=== PATIENT | female | born 1975 | race American Indian/Alaskan Native ===

== ENCOUNTER 2019-01-19 05:07 | Inpatient (IN) | payer OTHER | END 2019-01-23 09:54 | disposition home or self-care (01) | LOC: JASUSAT 05:07 → J6S 18:06 ==

== ENCOUNTER 2021-01-08 13:02 | Emergency (ER) | payer OTHER ==
[2021-01-08 13:07] VITALS: BMI 34.7
[2021-01-08] MEDS ORDERED: LACTATED RINGERS SOLUTION 1000 ML INFUS.BAG IV ONE (14:23)
[2021-01-08] MEDS ORDERED: DEXTROSE 5%-LACTATED RINGERS 1,000 ML IV ONE (14:26)
[2021-01-08] MEDS ORDERED: DEXTROSE 5%-LACTATED RINGERS 1,000 ML IV SCH (14:45)
[2021-01-08 15:05] LABS: BASO % 0.5 % (0-2.0); EOS % 2.3 % (0-4.5); HEMATOCRIT 46.3 % (32.4-45.2); HEMOGLOBIN 15.4 GM/dL (10.7-15.3); LYMPH % 35.8 % (8-40); MCH 29.2 pg (25.7-33.7); MCHC 33.2 g/dl (32.0-36.0); MEAN CELL VOLUME 87.7 fl (80-96); MEAN PLT VOLUME 8.8 fl (7.5-11.1); MONO % 8.2 % (3.8-10.2); NEUT % 53.2 % (42.8-82.8); PLATELET COUNT 255 K/MM3 (134-434); RBC 5.28 M/mm3 (3.60-5.2); RDW 13.9 % (11.6-15.6); WHITE BLOOD COUNT 5.5 K/mm3 (4.0-10.0)
[2021-01-08 15:36] LABS: ALBUMIN 3.8 g/dl (3.4-5.0)
[2021-01-08 15:39] LABS: CREATININE 0.7 mg/dL (0.55-1.3)
[2021-01-08 15:40] LABS: PHOSPHOROUS 2.4 mg/dL (2.5-4.9)
[2021-01-08 15:41] LABS: BILIRUBIN,TOTAL 0.4 mg/dL (0.2-1); TOT PROT 7.9 g/dl (6.4-8.2)
[2021-01-08 16:57] VITALS: BP 105/69; PULSE 66; TEMP 98
== END 2021-01-08 16:50 | disposition home or self-care (01) ==
LOC: JER 13:02
DX: R19.7 Diarrhea, unspecified (principal); R53.1 Weakness
CPT/HCPCS: 36415; 80053; 83735; 84100; 84703; 85025; 93005; 93010; 99284-25

== ENCOUNTER 2022-05-23 15:33 | Emergency (ER) | payer OTHER ==
[2022-05-23 15:48] VITALS: BP 97/62; PULSE 64; RESP 19; TEMP 98.4; BMI 25.4
[2022-05-23] MEDS ORDERED: ACETAMINOPHEN 1000 MG/100 ML BAG IVPB ONE (17:08)
[2022-05-23] MEDS ORDERED: ACETAMINOPHEN INJECTION 100 ML IVPB ONE (17:35)
[2022-05-23 18:01] LABS: BASO % 0.3 % (0-2.0); EOS % 0.7 % (0-4.5); HEMATOCRIT 42.1 % (32.4-45.2); HEMOGLOBIN 13.9 GM/dL (10.7-15.3); LYMPH % 42.7 % (8-40); MCH 29.5 pg (25.7-33.7); MCHC 33.1 g/dl (32.0-36.0); MEAN CELL VOLUME 89.3 fl (80-96); MEAN PLT VOLUME 8.1 fl (7.5-11.1); MONO % 9.2 % (3.8-10.2); NEUT % 47.1 % (42.8-82.8); PLATELET COUNT 229 10^3/uL (134-434); RBC 4.72 M/mm3 (3.60-5.2); RDW 14.2 % (11.6-15.6)
[2022-05-23 18:17] LABS: CALCIUM 8.9 mg/dL (8.5-10.1)
[2022-05-23 18:18] LABS: ALBUMIN 3.2 g/dl (3.4-5.0); BLOOD UREA NITROGEN 19.1 mg/dL (7-18)
[2022-05-23 18:21] LABS: CREATININE 0.7 mg/dL (0.55-1.3); URINE APPEARANCE CLEAR; URINE BILIRUBIN NEGATIVE (NEGATIVE); URINE COLOR YELLOW; URINE GLUCOSE (UA) NEGATIVE (NEGATIVE); URINE KETONE TRACE (NEGATIVE); URINE LEUK ESTERASE NEGATIVE (NEGATIVE); URINE NITRITE NEGATIVE (NEGATIVE); URINE PROTEIN NEGATIVE (NEGATIVE)
[2022-05-23 18:22] LABS: TOT PROT 6.8 g/dl (6.4-8.2)
[2022-05-23 18:23] LABS: BILIRUBIN,TOTAL 0.2 mg/dL (0.2-1)
== END 2022-05-23 22:55 | disposition home or self-care (01) ==
LOC: JER 15:33
PROC: 3E0333Z Introduction of Anti-inflammatory into Peripheral Vein, Percutaneous Approach (ICD-10-PCS; principal; 2022-05-23)
DX: N83.291 Other ovarian cyst, right side (principal)
CPT/HCPCS: 36415; 74177-TC; 80053; 81003; 85025; 87086; 93005; 93010; 99285-25